=== PATIENT | male | born 1960 | race African-American/Black ===

== ENCOUNTER 2021-05-19 16:12 | Emergency (ER) | payer MEDICAID ==
[~2021-05-19] VITALS: Ht 165.1 cm; Wt 73.0 kg
[~2021-05-19 16:12] MED LIST: FURO20TA4 PO; LOSA25TA3 PO
[2021-05-19] MEDS ORDERED: ASPIRIN 325MG EC TABLET PO ONE (19:00)
[2021-05-19 19:30] VITALS: BP 177/89
[2021-05-19 19:32] LABS: BASOPHILS % 0.2 % (0.0-2.0); EOSINOPHILS % 8.8 % (0.0-5.0); LYMPHOCYTES % 27.9 % (20.0-50.0); MEAN CORPUSCULAR HEMOGLOBIN 36.1 pg (28.0-32.0); MEAN CORPUSCULAR VOLUME 105.5 fL (80.0-94.0); MEAN PLATELET VOLUME 7.7 fl (7.4-10.4); MONOCYTES % 2.7 % (2.0-8.0); NEUTROPHILS % 60.4 % (40.0-76.0); PLATELET 157 x1000/uL (130-400); RED BLOOD CELL COUNT 3.32 mill/uL (4.7-6.1); RED CELL DISTRIBUTION WIDTH 28.1 % (11.6-14.6)
[2021-05-19 20:29] LABS: CHLORIDE 110 mEq/L (98-107); ETHANOL BLOOD < 10 mg/dL
[2021-05-19 21:55] LABS: PLATELET ESTIMATE NORMAL
== END 2021-05-19 21:20 | disposition left against medical advice (07) ==
LOC: ER 16:12
DX: I11.0 Hypertensive heart disease with heart failure (principal); I50.9 Heart failure, unspecified; R07.9 Chest pain, unspecified; Z91.14 Patient's other noncompliance with medication regimen
CPT/HCPCS: 36415; 71045; 80053; 80320; 83880; 84484; 85025; 93005; 99285; G0480

== ENCOUNTER 2021-07-11 17:48 | Emergency (ER) | payer MEDICAID ==
[~2021-07-11] VITALS: Ht 165.1 cm; Wt 71.0 kg
[~2021-07-11 17:48] MED LIST changes: -FURO20TA4 PO
[2021-07-11 18:05] VITALS: BP 140/97
== END 2021-07-11 23:36 | disposition left against medical advice (07) ==
LOC: ER 17:48
DX: R07.89 Other chest pain (principal); Z53.21 Procedure and treatment not carried out due to patient leaving prior to being seen by health care provider
CPT/HCPCS: 93005

== ENCOUNTER 2021-09-08 08:09 | Inpatient (IN) | payer MEDICAID ==
[~2021-09-08] VITALS: Ht 167.6 cm; Wt 60.8 kg
[2021-09-08] MEDS ORDERED: ACETAMINOPHEN 325MG TABLET PO ONE (08:45)
[2021-09-08] MEDS ORDERED: MORPHINE SULFATE 4 MG/ML CPJ (NOT FOR IM USE) IV STA (09:02)
[2021-09-08 09:06] LABS: BASOPHILS % 0.4 % (0.0-2.0); EOSINOPHILS % 3.1 % (0.0-5.0); LYMPHOCYTES % 18.5 % (20.0-50.0); MEAN CORPUSCULAR HEMOGLOBIN 29.3 pg (28.0-32.0); MEAN CORPUSCULAR VOLUME 90.1 fL (80.0-94.0); MEAN PLATELET VOLUME 7.8 fl (7.4-10.4); MONOCYTES % 10.5 % (2.0-8.0); NEUTROPHILS % 67.5 % (40.0-76.0); PLATELET 294 x1000/uL (130-400); RED BLOOD CELL COUNT 4.11 mill/uL (4.7-6.1); RED CELL DISTRIBUTION WIDTH 21.3 % (11.6-14.6)
[2021-09-08 09:08] LABS: CHLORIDE 110 mEq/L (98-107)
[2021-09-08] MEDS ORDERED: ASPIRIN 81MG TABLET PO ONE (09:15)
[2021-09-08] MEDS: NITROGLYCERIN 0.4MG TABLET SL SL PRN ×2 (09:22→20:34)
[2021-09-08] MEDS ORDERED: FUROSEMIDE 40MG/4ML VIAL IVP SCH (11:45)
[2021-09-08 23:19] VITALS: BP 155/116
[2021-09-09] MEDS ORDERED: HYDROCODONE/ACETAMINOPHEN 5/325MG TABLET PO PRN (01:00)
[2021-09-09 03:29] LABS: *AMPHETAMINES SCREEN URINE NEGATIVE (NEGATIVE); *BARBITURATES SCREEN URINE NEGATIVE (NEGATIVE); *BENZODIAZEPINES SCREEN URINE NEGATIVE (NEGATIVE); *COCAINE SCREEN URINE PRESUMTIVE POSITIVE (NEGATIVE); CANNABINOID URINE SCREEN NEGATIVE (NEGATIVE); METHADONE URINE SCREEN NEGATIVE (NEGATIVE); OPIATES URINE SCREEN PRESUMTIVE POSITIVE (NEGATIVE); PHENCYCLIDINE URINE SCREEN NEGATIVE (NEGATIVE)
[2021-09-09 04:00] VITALS: BP 100/65
[2021-09-09] MEDS: HYDRALAZINE HCL 50MG TABLET PO SCH ×3 (05:23→21:27)
[2021-09-09 06:06] LABS: BASOPHILS % 0.2 % (0.0-2.0); EOSINOPHILS % 2.1 % (0.0-5.0); HEMATOCRIT. 34.2 % (42.0-52.0); HEMOGLOBIN. 11.3 g/dL (14.0-18.0); MEAN CORPUSCULAR HEMOGLOBIN 29.2 pg (28.0-32.0); MEAN CORPUSCULAR VOLUME 88.6 fL (80.0-94.0); MEAN PLATELET VOLUME 7.7 fl (7.4-10.4); MONOCYTES % 6.5 % (2.0-8.0); NEUTROPHILS % 81.2 % (40.0-76.0); PLATELET 256 x1000/uL (130-400); RED BLOOD CELL COUNT 3.86 mill/uL (4.7-6.1); RED CELL DISTRIBUTION WIDTH 20.6 % (11.6-14.6)
[2021-09-09 06:24] LABS: CHLORIDE 106 mEq/L (98-107)
[2021-09-09 06:32] LABS: LDL CHOLESTEROL 66 mg/dL (5-100)
[2021-09-09 06:34] LABS: HDL CHOLESTEROL 42 mg/dL (40-59)
[2021-09-09 08:00] VITALS: BP 151/114
[2021-09-09] MEDS ORDERED: IPRATROPIUM/ALBUTEROL 0.5-3(2.5)MG/3ML NEB HHN PRN (08:15)
[2021-09-09] MEDS ORDERED: KETOROLAC 30MG/ML VIAL IV PRN (08:15)
[2021-09-09] MEDS: CARVEDILOL 3.125 MG TABLET PO SCH ×2 (08:57→21:28)
[2021-09-09] MEDS: LISINOPRIL 20MG TABLET PO SCH (08:57)
[2021-09-09] MEDS: ASPIRIN 81MG TABLET PO SCH (08:57)
[2021-09-09] MEDS ORDERED: FUROSEMIDE 40MG/4ML VIAL IVP SCH (09:00)
[2021-09-09 12:00] VITALS: BP 128/83
[2021-09-09 16:00] VITALS: BP 107/66
[2021-09-09] MEDS: FUROSEMIDE 40MG/4ML VIAL IVP SCH (16:41)
[2021-09-09 20:00] VITALS: BP 140/81
[2021-09-10] VITALS (10 sets, daily range): BP systolic 98–150; BP diastolic 39–98
[2021-09-10] MEDS ORDERED: HYDROCODONE/ACETAMINOPHEN 5/325MG TABLET PO PRN (01:15)
[2021-09-10] MEDS ORDERED: HEPARIN 60 UNITS/KG BOLUS IV SCH (01:45)
[2021-09-10] MEDS ORDERED: HEPARIN BOLUS PRN aPTT <30 IV (01:45)
[2021-09-10] MEDS ORDERED: HEPARIN BOLUS PRN aPTT 30-44 IV (01:45)
[2021-09-10] MEDS ORDERED: HEPARIN 25,000 UNITS in DEXT 5% WATER 245 ML IV SCH (01:45)
[2021-09-10 01:53] LABS: BASOPHILS % 0.2 % (0.0-2.0); EOSINOPHILS % 1.3 % (0.0-5.0); HEMATOCRIT. 36.5 % (42.0-52.0); HEMOGLOBIN. 11.8 g/dL (14.0-18.0); LYMPHOCYTES % 11.4 % (20.0-50.0); MEAN CORPUSCULAR HEMOGLOBIN 28.4 pg (28.0-32.0); MEAN CORPUSCULAR VOLUME 87.6 fL (80.0-94.0); MEAN PLATELET VOLUME 7.3 fl (7.4-10.4); MONOCYTES % 8.6 % (2.0-8.0); NEUTROPHILS % 78.5 % (40.0-76.0); PLATELET 261 x1000/uL (130-400); RED BLOOD CELL COUNT 4.17 mill/uL (4.7-6.1); RED CELL DISTRIBUTION WIDTH 20.5 % (11.6-14.6)
[2021-09-10] MEDS: HYDRALAZINE HCL 50MG TABLET PO SCH ×3 (05:00→21:17)
[2021-09-10] MEDS: ASPIRIN 81MG TABLET PO SCH (09:41)
[2021-09-10] MEDS: FUROSEMIDE 40MG/4ML VIAL IVP SCH ×2 (09:42→16:47)
[2021-09-10] MEDS: CARVEDILOL 3.125 MG TABLET PO SCH ×2 (09:42→21:16)
[2021-09-10] MEDS: LISINOPRIL 20MG TABLET PO SCH (09:42)
[2021-09-10] MEDS ORDERED: NALOXONE HCL 0.4MG/ML VIAL IV PRN (15:45)
[2021-09-10] MEDS ORDERED: ENOXAPARIN 60MG/0.6ML SYR SUBCUT SCH (16:00)
[2021-09-10] MEDS ORDERED: ENOXAPARIN 60MG/0.6ML SYR SUBCUT NR (16:00)
[2021-09-10 16:08] LABS: CREATINE KINASE MB FRACTION 1.1 ng/mL (0.5-3.6)
[2021-09-10 17:30] LABS: INR 1.2; PROTHROMBIN TIME 12.3 sec (9.6-11.0)
[2021-09-11] VITALS: BP 104/60
[2021-09-11 04:00] VITALS: BP 108/60
[2021-09-11] MEDS: HYDRALAZINE HCL 50MG TABLET PO SCH ×2 (05:07→14:04)
[2021-09-11 08:00] VITALS: BP 137/92
[2021-09-11] MEDS ORDERED: ENOXAPARIN 60MG/0.6ML SYR SUBCUT SCH (09:00)
[2021-09-11] MEDS: ASPIRIN 81MG TABLET PO SCH (09:36)
[2021-09-11] MEDS: FUROSEMIDE 40MG/4ML VIAL IVP SCH (09:36)
[2021-09-11] MEDS: LISINOPRIL 20MG TABLET PO SCH (09:37)
[2021-09-11] MEDS: CARVEDILOL 3.125 MG TABLET PO SCH (09:38)
[2021-09-11] MEDS ORDERED: COR3 PO (09:46)
[2021-09-11] MEDS ORDERED: FURO-151 MT (09:46)
[2021-09-11] MEDS ORDERED: LOSA100T32 MT (09:46)
[2021-09-11 12:00] VITALS: BP 121/72
[2021-09-11 15:29] VITALS: BP 134/99
== END 2021-09-11 16:00 | disposition home or self-care (01) | DRG 194 ==
LOC: ER 08:21 → EDBEDREQ 14:43 → EDBEDREQTM 14:43 → ENRESERV 21:10 → 8WST 22:31 → 5EST 09-10 00:42
PROVIDERS: ADMIT Internal Medicine; ATTEND Internal Medicine
DX: I11.0 Hypertensive heart disease with heart failure (principal); E43 Unspecified severe protein-calorie malnutrition; I42.9 Cardiomyopathy, unspecified; I50.23 Acute on chronic systolic (congestive) heart failure; E87.8 Other disorders of electrolyte and fluid balance, not elsewhere classified; D64.9 Anemia, unspecified; F14.10 Cocaine abuse, uncomplicated; F17.210 Nicotine dependence, cigarettes, uncomplicated; J44.9 Chronic obstructive pulmonary disease, unspecified; Z68.21 Body mass index [BMI] 21.0-21.9, adult; R07.89 Other chest pain; Z82.49 Family history of ischemic heart disease and other diseases of the circulatory system
CPT/HCPCS: 36415; 71045; 80048; 80053; 80061; 80305; 82550; 82553; 83880; 84484; 85025; 93005; 93306; J1644; J1650; J1885; J1940; J2270; J7060